=== PATIENT | male | born 1975 | race Caucasian/White ===

== ENCOUNTER 2017-08-07 16:06 | Emergency (ER) | payer BC ==
[~2017-08-07] VITALS: Ht 188 cm; Wt 115.7 kg
[2017-08-07 16:28] VITALS: BP_SYST 167
[2017-08-07] MEDS ORDERED: DIPH-TET-PERTUS Vaccine 0.5 ML VIAL (ADACEL) I.M. ONE (18:30)
[2017-08-07] MEDS ORDERED: IBUPROFEN 600 MG TABLET PO ONE (18:30)
[2017-08-07] MEDS ORDERED: LIDOCAINE 1% 10 MG/ML, 20 ML MDV INJ ONE (19:00)
[2017-08-07] MEDS ORDERED: BACITRACIN 1 GM OINT TP ONE (19:45)
[2017-08-07 19:57] VITALS: BP_SYST 145
== END 2017-08-07 19:57 | disposition home or self-care (01) ==
LOC: SED 16:06
DX: S61.214A Laceration without foreign body of right ring finger without damage to nail, initial encounter (principal); R03.0 Elevated blood-pressure reading, without diagnosis of hypertension; W25.XXXA Contact with sharp glass, initial encounter; Y93.89 Activity, other specified; Y92.89 Other specified places as the place of occurrence of the external cause; Y99.8 Other external cause status
CPT/HCPCS: 12001; 73140; 90471; 90715; 99284; J2001